=== PATIENT | female | born 1970 | race African-American/Black ===

== ENCOUNTER 2016-07-19 11:41 | Day surgery (SDC) | payer OTHER ==
--- NOTE | ~2016-07-19 | OP ---
Record Of Operation [facility] [address] [place]. [address] NAME: ANDRE ACUNA : 68 STATUS : REG [facility] [place] PAT#: [id number] AGE: 45 ADM/REG DATE : 07/19/16 MR#: [id number] REPORT SERV DATE: 07/19/16 DICTATED BY: PEDRO VENTURA DATE: 07/19/16 REPORT STATUS : Draft TRANSCRIBED BY: RUBY DATE: 07/19/16 DATE OF PROCEDURE: PREOPERATIVE DIAGNOSIS: Status post a ReShape intragastric balloon for the treatment of obesity since 6 months ago. POSTOPERATIVE DIAGNOSIS: Status post a ReShape intragastric balloon for the treatment of obesity since 6 months ago. PROCEDURE: Removal of ReShape intragastric balloon endoscopically. SURGEON: Pedro Ventura M.D. ANESTHESIA: MAC. COMPLICATIONS: None. INDICATION FOR THE PROCEDURE: This is a 45-year-old female with obesity with a BMI of 36.2 and a weight of 196 pounds and associated hypertension and type 2 diabetes, status post a ReShape balloon 6 months ago. DESCRIPTION OF PROCEDURE: The patient was taken to the endoscopy room and after adequate IV sedation under MAC, we put the scope through the mouth all the way down to the esophagus and the stomach. We saw that the 2 balloons were inflated. At first we punctured the first balloon with a suction catheter and then aspirated all the fluid out and then punctured the distal balloon and aspirated all the fluid out. The patient was having approximately 375 mL on each balloon and then we proceeded to visualize the balloon and then the proximal tip was actually on the distal position, so we were able to retroflex the scope, identify the tip, and then grab it with a snare, closed the snare around the tip and then pulled it out through the esophagus and the mouth with no problems and then rescoped the patient and verified there was no evidence of ulcerations or any other problems. The patient tolerated the procedure well without any problems. JOSH Pedro Peterson M.D. / [id number] CC: Pedro Ventura M.D.
[~2016-07-19 11:41] MED LIST: GLUCPH PO; MULTIPLE VIT PO; PRIN20 PO; [UNRECOGNIZED DRUG - OTHER]
== END 2016-07-19 23:59 | disposition home or self-care (01) ==
LOC: MSC 11:41
PROVIDERS: Surgery
PROC: 0DC68ZZ Extirpation of Matter from Stomach, Via Natural or Artificial Opening Endoscopic (ICD-10-PCS; principal; 2016-07-19 14:00)
DX: Z46.59 Encounter for fitting and adjustment of other gastrointestinal appliance and device (principal); E66.01 Morbid (severe) obesity due to excess calories; E11.9 Type 2 diabetes mellitus without complications; G43.909 Migraine, unspecified, not intractable, without status migrainosus; I10 Essential (primary) hypertension; Z68.36 Body mass index [BMI] 36.0-36.9, adult; Z79.899 Other long term (current) drug therapy; Z90.89 Acquired absence of other organs; Z98.890 Other specified postprocedural states
CPT/HCPCS: 82962